=== PATIENT | male | born 1995 | race Caucasian/White ===

== ENCOUNTER 2019-11-21 08:20 | Outpatient (CLI) | payer OTHER | END 2019-11-21 08:21 | disposition critical access hospital (66) | LOC: EMS 08:20 | PROVIDERS: ATTEND Surgery | DX: R04.0 Epistaxis (principal); R51 Headache | CPT/HCPCS: A0425; A0429 ==

== ENCOUNTER 2019-11-21 08:39 | Emergency (ER) | payer OTHER ==
[2019-11-21] MEDS ORDERED: OXYMETAZOLINE HCL 100 SPRAYS BOTTLE NAS STA (08:55)
--- NOTE | 2019-11-21 08:55 | ED Physician Documentation ---
PD HPI HEENT - Stated complaint Stated Complaint: NOSEBLEED - Chief complaint Chief Complaint: Heent - History obtained from History obtained from: Patient - History of Present Illness Timing - onset: Today Timing - details: Abrupt onset, Intermittant (has had runny nose and irritation from seasonal allergies. Takes oral allergy meds. Does not use nasal spray as it irritates his nose. Had bleeding left nostril this morning when got up, lasted about 30 minutes then stopped. Resumed again 15-20 minutes ago. Still bleeding despite pinching nose.) Location: Nose Associated symptoms: Rhinorrhea. No: Fever, Facial swelling Similar symptoms before: Has not had sx before Review of Systems Constitutional: denies: Fever, Chills Nose: reports: Rhinorrhea / runny nose, Congestion, Epistaxis (just today; had not had it previously) Throat: denies: Sore throat Respiratory: denies: Cough Neurologic: denies: Altered mental status, Headache PD PAST MEDICAL HISTORY - Past Medical History Past Medical History: No HEENT: Other (seasonal allergies) - Past Surgical History Past Surgical History: Yes - Present Medications Home Medications: Ambulatory Orders Medication Instructions Recorded Confirmed Sodium Chloride [Saline Nasal 88 ml NS BID #1 spray 11/21/19 [place]] - Allergies Allergies/Adverse Reactions: Allergies Allergy/AdvReac Type Severity Reaction Status Date / Time No Known Drug Allergies Allergy Verified 11/21/19 08:45 - Social History Does the pt smoke?: No Smoking Status: Never smoker Does the pt drink ETOH?: No Does the pt have substance abuse?: No - Immunizations Immunizations are current?: Yes PD ED PE NORMAL - Vitals Vital signs reviewed: Yes - General General: Alert and oriented X 3, No acute distress, Well developed/nourished - HEENT HEENT: Pharynx benign, Other (both nares with some redness and mild inflammation of mucosa c/w allergies. Left anterior medial wall with focal area of vessel inflammation, with scant bleeding from it. ) - Neck Neck: Supple, no meningeal sign, No adenopathy - Cardiac Cardiac: RRR, No murmur - Respiratory Respiratory: Clear bilaterally - Derm Derm: Normal color, Warm and dry - Neuro Neuro: Alert and oriented X 3, No motor deficit, Normal speech Results - Vitals Vitals: Vital Signs - 24 hr 11/21/19 11/21/19 08:43 10:02 Temperature 37.2 C Heart Rate 65 78 Respiratory 16 16 Rate Blood Pressure 125/82 H 117/76 O2 Saturation 98 98 Oxygen O2 Source Room air Procedures - Epistaxis Site: Left Preparation: Afrin, Clamp / pressure applied Treatment: Silver Nitrate, Packing inserted Other: Observed - no bleeding, Pt tolerated well PD MEDICAL DECISION MAKING - ED course Complexity details: considered differential (single area of bleeding anterior left. Some inflammation of [place] generally c/w allergies. ), d/w patient Departure - Departure Disposition: 01 Home, Self Care Clinical Impression: Anterior epistaxis, Seasonal allergies Condition: Stable Record reviewed to determine appropriate education?: Yes Instructions: ED Nosebleed, ED Nasal Packing Anterior Removable Prescriptions: Sodium Chloride [Saline Nasal [place]] 88 ml NS BID #1 spray Comments: Leave the packing in the nostril through the day today and then remove it gently after moisturizing it you this evening or tomorrow morning. This is to try to to allow time for that bleeding spot to seal over and foremost sturdier clot over it. If you get recurrent bleeding, pinch the nostril for 10 or 15 minutes and see if it will stop it while leaving the packing in. Return if persistent bleeding despite that. Otherwise if no further bleeding and you remove the packing easily, then use s ome saline moisturizing nasal spray twice daily on both nostrils to keep it moisturized. For if few days to week you could also use some Vaseline on a Q- tip to the medial wall of the nostril to keep it lubricated as well. This is to try to prevent current or other areas of bleeding due to the allergy rawness. Continue your oral allergy medicines. Follow-up with your primary care if persistent allergies or problems Discharge Date/Time: 11/21/19 10:03
[2019-11-21 10:03] VITALS: BP 117/76
== END 2019-11-21 10:03 | disposition home or self-care (01) ==
LOC: ED 08:39
DX: R04.0 Epistaxis (principal); J30.2 Other seasonal allergic rhinitis
CPT/HCPCS: 30903; 99283; 99284; A9270